=== PATIENT | female | born 1935 | race Caucasian/White ===

== ENCOUNTER 2019-07-09 15:54 | Inpatient (IN) | payer MEDICARE ==
[~2019-07-09] VITALS: Ht 149.9 cm; Wt 59.9 kg
--- NOTE | 2019-07-09 15:54 | NUR ---
PT ADRIÁNA ALS AND PLACED IN BED 10.
--- NOTE | 2019-07-09 16:06 | NUR ---
CALLED CT FOR CODE BRAIN PER DR. ALSTON AT THIS TIME.
[2019-07-09] MEDS ORDERED: NACL 0.9% 1,000 ML IV ONE ×3 (16:10→21:55)
[2019-07-09] MEDS ORDERED: ONDANSETRON 4 MG/2 ML VIAL IVP ONE (16:10)
[2019-07-09 16:20] VITALS: BP 127/43
[2019-07-09 16:53] LABS: BASOPHILS % (AUTO) 0.2 % (0.0-2.0); EOSINOPHILS % (AUTO) 0.3 % (0.0-4.0); HEMATOCRIT 34.3 % (36-48); HEMOGLOBIN 11.4 g/dL (12.0-16.0); LYMPHOCYTES # (AUTO) 0.9 K/uL (2.5-16.5); LYMPHOCYTES % (AUTO) 10.1 % (20.5-51.1); MEAN CORPUSCULAR HEMOGLOBIN 41 pg (27-31); MEAN CORPUSCULAR HGB CONC 33 g/dL (33-37); MEAN CORPUSCULAR VOLUME 122.6 fL (80-94); MONOCYTES # (AUTO) 0.1 K/uL (0.8-1.0); MONOCYTES % (AUTO) 0.6 % (1.7-9.3); NEUTROPHILS # (AUTO) 8.1 K/uL (1.8-7.7); NEUTROPHILS % (AUTO) 88.8 % (42.2-75.2); PLATELET COUNT (AUTO) 362 K/uL (140-450); RED CELL DISTRIBUTION WIDTH 14.8 % (11.6-13.7); WHITE BLOOD COUNT (AUTO) 9.1 K/uL (4.8-10.8)
[2019-07-09 17:05] LABS: ANION GAP 18.7 (8-16); CARBON DIOXIDE 20.3 mmol/L (21-32); CHLORIDE 103 mmol/L (98-107); CREATININE 1.3 mg/dL (0.6-1.3); GLUCOSE 188 mg/dL (74-106); SODIUM SERUM 137 mmol/L (136-145); UREA NITROGEN, BLOOD 35 mg/dL (7-18)
--- NOTE | 2019-07-09 17:07 | NUR ---
PATIENT BROUGHT TO ED BY AMBULANCE DUE TO ALOC SINCE 6PM LAST NIGHT. +VOMITING X 1, +DIAPHORESIS, +CP, +ABDOMINAL PAIN. SON STATES THAT PT IS USUALLY ALERT AND ORIENTED. PT IS AAOX4. GCS 14. ABLE TO SPEAK IN FULL SENTENCE. NO SLURRING. PT ABLE TO FOLLOW COMMANDS. PERRLA 3MM ON BOTH PUPILS, SLUGGISH. NIHS SCORE OF 0. NO NEURO DEFICIT. AAOX4 WITH EVEN AND STEADY GAIT; BREATHING UNLABORED, LUNGS CLEAR BL; PT ON RA AT 90%, SWITCHED TO 02 VIA NC AT 2L. HR EVEN AND REGULAR; ABDOMEN FIRM, TENDER WITH ACTIVE BOWEL SOUNDS ON ALL QUADRANTS. SKIN DRY AND PALE WITH DISCOLORATION ON EXTREMITIES. WITH BRUISES ON PT'S RIGHT BACK. PULSES +2 ON ALL EXTREMITIES. NSR. VSS. PT DENIES ANY FEVER, SOB, OR COUGH AT THIS TIME; PATIENT STATES PAIN OF 0/10 AT THIS TIME; VSS; PATIENT POSITIONED FOR COMFORT; HOB ELEVATED; BEDRAILS UP X2; BED DOWN. DR ERICKSON AT BEDSIDE EVALUATING PT. CODE BRAIN CALLED AT 1606. CALLED CT.
[2019-07-09 17:11] LABS: ALBUMIN 3.6 g/dL (3.4-5.0); ASPARTATE AMINOTRANSFERASE 29 U/L (15-37); TOTAL BILIRUBIN 0.7 mg/dL (0.0-1.0)
[2019-07-09 17:13] LABS: PROTHROMBIN TIME 10.6 secs (10.8-13.4)
[2019-07-09] MEDS ORDERED: ISOS20TA13 PO (17:33)
[2019-07-09] MEDS ORDERED: ORE25 PO (17:33)
[2019-07-09] MEDS ORDERED: SIMV20TA1 PO (17:33)
[2019-07-09] MEDS ORDERED: DULO30EC PO (17:33)
[2019-07-09] MEDS ORDERED: CLON0.1T42 PO (17:33)
[2019-07-09] MEDS ORDERED: AMLO10TA PO (17:33)
[2019-07-09] MEDS ORDERED: HYDR500C PO (17:33)
[2019-07-09] MEDS ORDERED: LISI-420 PO (17:33)
[2019-07-09] MEDS ORDERED: CARV6.25 PO (17:33)
[2019-07-09] MEDS ORDERED: METF850T PO (17:33)
[2019-07-09] MEDS ORDERED: ASPI-1718 PO (17:33)
--- NOTE | 2019-07-09 17:45 | NUR ---
PT'S DAUGHTER STATED THAT PT HIT HER RIGHT TORSO ON THE KITCHEN COUNTER YESTERDAY.+BRUISING +PAIN
--- NOTE | 2019-07-09 18:35 | NUR ---
PT HAD LARGE BOWEL MOVEMENT OF LOOSE, WATERY STOOL. CLEANED BED AND CHANGED LINEN. CLEANED PT AND CHANGED HOSP GOWN. DR ALSTON MADE AWARE.
[2019-07-09] MEDS ORDERED: LEVOFLOXACIN 500 MG/D5W PREMIX 100 ML IV ONE (18:50)
[2019-07-09 19:13] LABS: APPEARANCE,URINE HAZY (CLEAR); BILIRUBIN,URINE NEGATIVE (NEGATIVE); BLOOD, URINE NEGATIVE (NEGATIVE); COLOR,URINE YELLOW (YELLOW); LEUKOCYTE ESTERASE ,URINE 1+ (NEGATIVE); NITRITE, URINE POSITIVE (NEGATIVE); UGLUCOSE NEGATIVE (NEGATIVE)
--- NOTE | 2019-07-09 19:24 | NUR ---
REPORT GIVEN TO HOWARD AUGUSTE
[2019-07-09 19:27] LABS: RBC,URINE 0 /HPF (0-5)
--- NOTE | 2019-07-09 19:35 | NUR ---
PT HAD X1 LARGE LIQUID STOOL, PERICARE DONE, LINEN CHANGED. VSS. WILL CONTINUE TO OBSEVE
--- NOTE | 2019-07-09 19:53 | NUR ---
Dr. Rooney examining patient.
--- NOTE | 2019-07-09 20:31 | NUR ---
PT TAKEN TO CT
--- NOTE | 2019-07-09 20:54 | NUR ---
PT RETURN FROM CT
[2019-07-09] MEDS ORDERED: ACETAMINOPHEN 325 MG TAB PO ONE (21:15)
[2019-07-09] MEDS ORDERED: fentaNYL 0.05 MG/ML VIAL IVP ONE (21:15)
--- NOTE | 2019-07-09 21:45 | NUR ---
# 16 FR Augustine catheter with 10 ml utilizing sterile technique. Immediate return of 600 ml CLOUDY YELLOW urine noted. Bedside drainage bag placed below level of bladder. Urine sample collected and sent to lab. Pt tolerated procedure WELL.
[2019-07-09] MEDS ORDERED: metroNIDAZOLE 500 MG/NS PREMIX 100 ML IV ONE (21:55)
[2019-07-09] MEDS ORDERED: HYDROcodone/APAP 7.5/325 MG 1 TAB PO PRN (22:40)
[2019-07-09] MEDS ORDERED: MORPHINE SULFATE 2 MG/ML SYR IVP PRN (22:40)
[2019-07-09] MEDS ORDERED: ONDANSETRON 4 MG/2 ML VIAL IM/IVP PRN (22:40)
--- NOTE | 2019-07-09 23:04 | NUR ---
Dr. Saini at bedside speaking with patient family.
--- NOTE | 2019-07-09 23:15 | NUR ---
flexy seal inserted, pt tolerated procedure well.
[2019-07-09 23:18] LABS: FREE T4 (FREE THYROXINE) 1.54 ng/dL (0.76-1.46); MAGNESIUM 2.5 mg/dL (1.8-2.4); PHOSPHORUS 5.1 mg/dL (2.5-4.9); THYROID STIMULATING HORMONE 0.44 uIU/mL (0.34-3.74)
--- NOTE | 2019-07-09 23:45 | NUR ---
RECEIVED PT FROM ER [facility]IA [facility].TRANSFERRED TO ICU BED 1.PT ALERT AND ORIENTED TO NAME,PLACE AND DATE.SR ON MONITOR.ON 02NC AT 2LPM.NO SOB NOTED.W/PERIPHERAL IV TO RT F/A G 18 AND LT F/A G22.INFUSING ORDERED IVF.PT DENIES N/V AT THIS TIME.W/ESCUDERO CATHETER TO BSD DRAINING ADEQUATE AMT OF YELLOW URINE.W/RECTAL TUBE ALSO IN PLACE W/SCANTY LIQUID BROWN STOOL.SPECIMEN TO R/O C.DIFF STILL PENDING.NO SPECIMEN AVAILABLE AT THIS TIME.W/LARGE BRUISE TO RT F/A.PHOTOS TAKEN OTHERWISE SKIN IS INTACT.DENIES PAIN AT THIS TIME.PT ABLE TO COOPER.
[2019-07-10] VITALS (12 sets, daily range): BP systolic 115–168; BP diastolic 43–67
[2019-07-10] MEDS: NACL 0.9% 1,000 ML IV SCH ×3 (00:12→15:43)
--- NOTE | 2019-07-10 00:15 | NUR ---
PTS FAMILY AT BEDSIDE.ADMISSION HISTORY OBTAINED.
--- NOTE | 2019-07-10 00:51 | NUR ---
Patient will be admitted to care of . Admited to icu 1. Belongings list completed. Report to Giana LAWRENCE.
--- NOTE | 2019-07-10 02:15 | NUR ---
PTS FAMILY AT BEDSIDE AND SPOKE WITH DR SHELL.
--- NOTE | 2019-07-10 03:17 | NUR ---
PTS EYES CLOSED.EASILY AROUSABLE.DENIES PAIN WHEN ASKED. 96% 02SATURATION ON 02NC AT 2LPM.REPOSITIONED.SCD ALREADY IN PLACE.STILL SCANTY AMT OF LIQUID STOOL IN THE TUBE(RECTAL TUBE)
--- NOTE | 2019-07-10 03:54 | NUR ---
PTS BLOOD PRESSURE 162/61; RECHECKED 169/67. PT DENIES PAIN.RERFUSED PAIN MEDICATION. PHONE CALL TO DR SHELL AND NOTIFIED REGARDING HIGH BP; NO NEW ORDERS
--- NOTE | 2019-07-10 04:20 | NUR ---
PHONE CALL TO DR SHELL; MADE AWARE THAT PT HAS 2/10 PAIN TO RT RIBS; PER PTS DAUGHTER JENN, PT IS ALLERGIC TO MORPHINE AND CODEINE, NOTED SEVERE SHORTNESS OF BREATH WHEN PT WAS ACCIDENTALLY GIVEN MORPHINE ON PREVIOUS ADMISSION; ALLERGY UPDATED ON PTS FILE.ALSO NOTIFIED DR SHELL PTS BP AT THIS TIME IS 170/66.AWAITING ORDERS
--- NOTE | 2019-07-10 05:04 | NUR ---
pts daughter at bedside;informed that nurse will give toradol for pain; pts daughter said its ok to give the medication
[2019-07-10] MEDS: KETOROLAC 15 MG/ML VIAL IVP PRN ×2 (05:11→12:35)
[2019-07-10] MEDS: metroNIDAZOLE 500 MG/NS PREMIX 100 ML IV SCH ×3 (05:11→20:24)
[2019-07-10 06:20] LABS: HEMATOCRIT 34.2 % (36-48); HEMOGLOBIN 11.3 g/dL (12.0-16.0); LYMPHOCYTES # (AUTO) 1.3 K/uL (2.5-16.5); LYMPHOCYTES % (AUTO) 8.6 % (20.5-51.1); MEAN CORPUSCULAR HEMOGLOBIN 40 pg (27-31); MEAN CORPUSCULAR HGB CONC 33 g/dL (33-37); MONOCYTES # (AUTO) 0.6 K/uL (0.8-1.0); MONOCYTES % (AUTO) 3.8 % (1.7-9.3); NEUTROPHILS % (AUTO) 87.6 % (42.2-75.2); PLATELET COUNT (AUTO) 327 K/uL (140-450); RED CELL DISTRIBUTION WIDTH 15.2 % (11.6-13.7); WHITE BLOOD COUNT (AUTO) 14.8 K/uL (4.8-10.8)
--- NOTE | 2019-07-10 06:20 | NUR ---
PTS EYES CLOSED; NO SOB NOTED ON 02NC AT 2LPM.PERIPHERAL IV INTACT INFUSING ORDERED IVF.BP 136/58 AT THIS TIME.SR ON MONITOR.DENIES PAIN WHEN ASKED
[2019-07-10 06:54] LABS: ANION GAP 17.4 (8-16); CARBON DIOXIDE 21.8 mmol/L (21-32); CHLORIDE 105 mmol/L (98-107); CREATININE 1.1 mg/dL (0.6-1.3); GLUCOSE 205 mg/dL (74-106); POTASSIUM 4.2 mmol/L (3.5-5.1); SODIUM SERUM 140 mmol/L (136-145); UREA NITROGEN, BLOOD 27 mg/dL (7-18)
[2019-07-10] MEDS ORDERED: ALBUTEROL SULFATE/IPRATROPIU 3 ML SOL IH SCH ×2 (07:00)
--- NOTE | 2019-07-10 07:30 | NUR ---
RECEIVED REPORT FROM LUCRECIA Schmid RN. PT IS AWAKE AND ALERT. OCCITAN SPEAKING. ORIENTED. COOPER. SL GEN WEAKNESS NOTED. DENIES ANY PAINS AT THIS TIME. 02 AT 2 L/MIN/NC, 02 SAT 94. NO SOB NOTED. LUNGS SOUND DIMINISHED. ENCOURAGED TO DO DEEP BREATHING AND COUGHING EX. IV INFUSING AT RT FA 0.9NS AT 80 ML/HR. IV SITE CLEAR. ESCUDERO CATH INTACT AND PATENT DRAINING WELL TO CLEAR STRAW COLORED URINE. RECTAL TUBE IN PLACE. NO BM NOTED AT THIS TIME,.
[2019-07-10] MEDS ORDERED: metFORMIN 850 MG TAB PO SCH (08:00)
--- NOTE | 2019-07-10 08:00 | NUR ---
BREAKFAST SERVED. ABLE TO FEED SELF WITH MINIMAL ASSISTANCE. ATE 80%. NO N/V. NO DIFFICULTY IN SWALLOWING.
[2019-07-10 08:06] LABS: MAGNESIUM 1.4 mg/dL (1.8-2.4); PHOSPHORUS 4.4 mg/dL (2.5-4.9)
[2019-07-10] MEDS: HYDROXYUREA 500 MG CAP PO SCH (08:24)
[2019-07-10] MEDS: LISINOPRIL 20 MG TAB PO SCH (08:25)
[2019-07-10] MEDS: cloNIDine 0.1 MG TAB PO SCH ×2 (08:26→20:28)
[2019-07-10] MEDS: ASPIRIN 81 MG TAB.CHEW PO SCH (08:27)
--- NOTE | 2019-07-10 08:30 | NUR ---
FAMILY HERE. INSTRUCTED ON CONTACT ISOLATION. UPDATED ON PT'S CONDITION.
[2019-07-10] MEDS: DULoxetine 30 MG CAPDR PO SCH (08:44)
[2019-07-10] MEDS ORDERED: ISOSORBIDE DINITRATE 20 MG TAB PO SCH (09:00)
[2019-07-10] MEDS ORDERED: LACTOBACILLUS RHAMNOSUS GG 1 EACH CAP PO SCH (09:00)
[2019-07-10] MEDS ORDERED: LEVOFLOXACIN 250 MG/D5 PREMIX 50 ML IV ONE (09:00)
[2019-07-10] MEDS ORDERED: amLODIPine 5 MG TAB PO SCH (09:00)
--- NOTE | 2019-07-10 09:04 | NUR ---
PATIENT HAS BEEN SCREENED AND CATEGORIZED HIGH NUTRITION RISK. PATIENT WILL BE SEEN WITHIN 1-2 DAYS OF ADMISSION. 07/10/19-07/11/[address]
[2019-07-10] MEDS: HYDROCHLOROTHIAZIDE 25 MG TAB PO SCH (09:45)
--- NOTE | 2019-07-10 10:00 | NUR ---
INCENTIVE SPIROMETER DONE. UNABLE TO DO. DOES NOT TAKE DEEP BREATHS.
[2019-07-10] MEDS ORDERED: LEVO0.083 PO (10:01)
[2019-07-10] MEDS: CARVEDILOL 6.25 MG TAB PO SCH ×2 (10:11→20:27)
--- NOTE | 2019-07-10 12:15 | NUR ---
STOOL SPECIMEN FOR ORDERED TESTS TAKEN TO THE LAB.
--- NOTE | 2019-07-10 12:45 | NUR ---
DR. KHAN HERE TO SEE AND EXAMINE PT.
--- NOTE | 2019-07-10 14:15 | NUR ---
ASSISTS IN REPOSITIONING SELF IN BED. SL DISCOMFORTS NOTED ON RT SIDE WITH MOVEMENT. REFUSED PAIN MEDS AT THIS TIME.
--- NOTE | 2019-07-10 15:01 | NUR ---
Sheeter Machine Operator Note: I called patient's daughter Yecenia Garciaas , no answer, left message.
--- NOTE | 2019-07-10 15:04 | NUR ---
07/10/19 RD INITIAL ASSESSMENT COMPLETED PLEASE REFER TO NUTRITION ASSESSMENT UNDER CARE ACTIVITY FOR ESTIMATED NUTRITIONAL NEEDS. 1. RECOMMEND A CCHO, CARDIAC DIET 2. RECOMMEND GLUCERNA BID 3. NUTRITION EDUCATION DM-II WAS GIVEN TO PT 4. RD TO FOLLOW-UP HIGH DAYS, 2-[address]
--- NOTE | 2019-07-10 16:00 | NUR ---
RECTAL TUBE DRAINING THICK BROWN LIQUID STOOLS.
[2019-07-10] MEDS ORDERED: MAG SULF 2000 MG/WATER PREMIX 100 ML IV SCH (18:00)
--- NOTE | 2019-07-10 18:00 | NUR ---
AWAKE AND ALERT. STATES SHE FEELS A LOT BETTER. DENIES ANY DISCOMFORTS AT THIS TIME. FAMILY AT BEDSIDE. UPDATED ON PT'S CONDITION. QUESTIONS ANSWERED.
[2019-07-10] MEDS ORDERED: LEVOFLOXACIN 250 MG/D5 PREMIX 50 ML IV SCH (19:00)
--- NOTE | 2019-07-10 19:00 | NUR ---
RECEIVED REPORT FROM ROXANNE LAWRENCE. INITIAL ASSESSMENT COMPLETED.PT AWAKE ALERT AND ORIENTED.BRAZILIAN SPEAKING.SR ON MONITOR.ON 02NC AT 2LPM.DIMINISHED LUNG SOUND NOTED.PERIPHERAL IV TO RT F/A G18 INTACT INFUSING ORDERED IVF.PT ON CARDIAC DIET.DENIES N/V.TOLERATING ORAL INTAKE.W/ESCUDERO CATHETER TO BSD DRAINING CLEAR YELLOW URINE, ADEQUATE AMT.W/RECTAL TUBE ALSO NOTED.SMALL BROWN PASTY STOOL NOTED.W/BRUISING TO RT F/A STILL NOTED AND BRUISING TO RT LATERAL BACK.DENIES PAIN WHEN ASKED.REPOSITIONED.
--- NOTE | 2019-07-10 20:00 | NUR ---
FAMILY AT BEDSIDE.UPDATED ON PTS PRESENT CONDITION. PT AWAKE . INSTRUCTED TO USE INCENTIVE SPIROMETER.PT ABLE TO DO A LITTLE BIT FOR NOW.WILL ENCOURAGE TO CONTINUE IS EXERCISE
[2019-07-10] MEDS: SIMVASTATIN 20 MG TAB PO SCH (20:27)
[2019-07-10] MEDS: ISOSORBIDE DINITRATE 10 MG TAB PO SCH (20:28)
--- NOTE | 2019-07-10 22:26 | NUR ---
SEEN AND EXAMINED BY DR DESAI; UPDATED ON PTS PRESENT CONDITION.QUESTIONS ANSWERED.NO NEW ORDERS. MADE AWARE PT ON ISOLATION TO R/O C.DIFF. NO NEW ORDERS
[2019-07-11] VITALS (11 sets, daily range): BP systolic 98–127; BP diastolic 42–52
--- NOTE | 2019-07-11 00:28 | NUR ---
PTS EYES CLOSED; EASILY AROUSABLE.INTERMITTENT SHALLOW BREATHING AND TACHYPNEA NOTED; PT STILL ON O2NC AT 2LPM.DENIES PAIN,.REPOSITIONED
[2019-07-11] MEDS: KETOROLAC 15 MG/ML VIAL IVP PRN ×2 (01:28→08:46)
--- NOTE | 2019-07-11 01:42 | NUR ---
PT AWAKE.FAMILY AT BEDSIDE.C/O PAIN TO RT SIDE OF ABDOMINAL AREA; TORADOL GIVEN ORDERED
--- NOTE | 2019-07-11 03:24 | NUR ---
contact isolation maintained to r/o c diff. pts eyes closed.no s/sx of pain noted.no sob noted.
[2019-07-11] MEDS: metroNIDAZOLE 500 MG/NS PREMIX 100 ML IV SCH ×3 (04:51→21:07)
[2019-07-11 04:58] LABS: BASOPHILS % (AUTO) 0.2 % (0.0-2.0); EOSINOPHILS % (AUTO) 0.3 % (0.0-4.0); HEMATOCRIT 27.4 % (36-48); HEMOGLOBIN 9.1 g/dL (12.0-16.0); LYMPHOCYTES # (AUTO) 1.4 K/uL (2.5-16.5); LYMPHOCYTES % (AUTO) 15.1 % (20.5-51.1); MEAN CORPUSCULAR HEMOGLOBIN 41 pg (27-31); MEAN CORPUSCULAR HGB CONC 33 g/dL (33-37); MEAN CORPUSCULAR VOLUME 121.6 fL (80-94); MONOCYTES # (AUTO) 0.4 K/uL (0.8-1.0); MONOCYTES % (AUTO) 3.9 % (1.7-9.3); NEUTROPHILS # (AUTO) 7.7 K/uL (1.8-7.7); NEUTROPHILS % (AUTO) 80.5 % (42.2-75.2); PLATELET COUNT (AUTO) 237 K/uL (140-450); RED BLOOD CELL COUNT(AUTO) 2.25 MIL/uL (4.20-5.40); RED CELL DISTRIBUTION WIDTH 15.1 % (11.6-13.7); WHITE BLOOD COUNT (AUTO) 9.5 K/uL (4.8-10.8)
[2019-07-11] MEDS: NACL 0.9% 1,000 ML IV SCH (05:13)
[2019-07-11] MEDS: LEVOTHYROXINE 0.088 MG TAB PO SCH (05:13)
--- NOTE | 2019-07-11 05:20 | NUR ---
morning care done.02sat noted at 87% on 02nc at 2lpm.called rt; breathing treatment given. family at bedside and updated on pts present condition
[2019-07-11] MEDS: ALBUTEROL SULFATE/IPRATROPIU 3 ML SOL IH PRN (05:22)
--- NOTE | 2019-07-11 05:53 | NUR ---
02sat during breathing treatment at 95-97%; after treatment 02sat went down to 87%; change to oxymizer at 6lpm; 02sat at this time 92%
--- NOTE | 2019-07-11 06:00 | NUR ---
PATIENT SWITCHED TO 6L OXYMIZER BECAUSE SPO2 WAS DECREASING EVEN AFTER PRN TREATMENT GIVEN. PATIENT SP02 IS NOW 96 HEART RATE 88 PATIENT STABLE NO RESP DISTRESS NOTICED. O2 WILL BE TITRATED BASED UPON THE STATUS OF PATIENT. RN NOTIFIED AND AWARE.
--- NOTE | 2019-07-11 07:30 | NUR ---
RECEIVED REPORT FROM PM NURSE. PT NAMIBIAN SPEAKING, AWAKE,ALERT. ON OXIMIZER 6L/MIN. O2 SATS 95%. NO S/S OF RESPIRATORY DISTRESS NOTED.LUNG SOUND CLEAR. BEDSIDE MONITOR SHOWS SR. PT HAS IV TO RIGHT FA #18 RUNNING 0.9 NS AT 100 CC/HR. SITE INTACT AND PATENT. PT ALSO HAS IV TO LEFT FA #22, SALINE LOCK. PT HAS RECTAL TUBE IN PLACE AND F/C IN PLACE. SKIN INTACT. SCDS IN PLACE. HOB ELEVATED 30 DEGREES WITH LOW BED POSITION, WILL CONTINUE TO MONITOR.
--- NOTE | 2019-07-11 08:00 | NUR ---
ORAL CARE GIVEN. PT EAT ABOUT 50% OF THE BREAKFAST TRAY.
[2019-07-11 08:04] LABS: ANION GAP 12.5 (8-16); CARBON DIOXIDE 21.6 mmol/L (21-32); CHLORIDE 102 mmol/L (98-107); GLUCOSE 191 mg/dL (74-106); POTASSIUM 4.1 mmol/L (3.5-5.1); SODIUM SERUM 132 mmol/L (136-145)
[2019-07-11 08:06] LABS: CREATININE 1.2 mg/dL (0.6-1.3); UREA NITROGEN, BLOOD 26 mg/dL (7-18)
[2019-07-11 08:08] LABS: MAGNESIUM 2.6 mg/dL (1.8-2.4)
[2019-07-11 08:09] LABS: PHOSPHORUS 2.4 mg/dL (2.5-4.9)
[2019-07-11] MEDS: LACTOBACILLUS RHAMNOSUS GG 1 EACH CAP PO SCH (08:42)
[2019-07-11] MEDS: CARVEDILOL 6.25 MG TAB PO SCH ×2 (08:43→21:09)
[2019-07-11] MEDS: ASPIRIN 81 MG TAB.CHEW PO SCH (08:45)
[2019-07-11] MEDS: ISOSORBIDE DINITRATE 10 MG TAB PO SCH ×2 (08:46→21:08)
[2019-07-11] MEDS: LISINOPRIL 20 MG TAB PO SCH (08:46)
[2019-07-11] MEDS: HYDROCHLOROTHIAZIDE 25 MG TAB PO SCH (08:47)
[2019-07-11] MEDS: amLODIPine 5 MG TAB PO SCH (08:48)
[2019-07-11] MEDS: cloNIDine 0.1 MG TAB PO SCH ×3 (08:48→21:09)
[2019-07-11] MEDS: DULoxetine 30 MG CAPDR PO SCH (08:51)
[2019-07-11] MEDS: HYDROXYUREA 500 MG CAP PO SCH (08:52)
[2019-07-11] MEDS: LEVOFLOXACIN 250 MG/D5 PREMIX 50 ML IV SCH (08:53)
--- NOTE | 2019-07-11 08:57 | NUR ---
HOLD CATAPRES DUE TO BEDSIDE MONITOR SHOWS BP 104/50, WHEN I RECYCLED BP SHOWS 100/42.
--- NOTE | 2019-07-11 09:00 | NUR ---
F/C CARE GIVEN. BED BATH GIVEN. DAUGHTER AT BEDSIDE.
--- NOTE | 2019-07-11 10:57 | NUR ---
PT SLEEPING AT THIS TIME. NO S/S OF RESPIRATORY DISTRESS NOTED. DAUGHTER AT BEDSIDE.
--- NOTE | 2019-07-11 12:00 | NUR ---
made dr. bryson aware we are unable to find rib belt so far. samantha Judge notified regarding rib belt.
[2019-07-11] MEDS: ACETAMINOPHEN 325 MG TAB PO SCH ×2 (12:06→17:03)
--- NOTE | 2019-07-11 12:36 | NUR ---
DR. HAWKINS IN TO CHECK PT. UPDATED PT'S CONDITION. DR. HAWKINS MADE AWARE PT IS BLOATED. AFTER DR. HAWKINS CHECKED PT. DR. HAWKINS STATED REMOVE RECTAL TUBE, PT MAY CONSTIPATED. NOTIFIED DR. RYAN.
[2019-07-11] MEDS: SENNA 8.6 MG TAB PO SCH ×2 (13:00→16:26)
--- NOTE | 2019-07-11 13:07 | NUR ---
RECTAL TUBE REMOVED. PT HAD MODERATE AMOUNT OF SOFT BM, CLEANED PT. GOWN CHANGED, PT STATED SHE FELT MUCH BETTER . DAUGHTER AND SON AT BEDSIDE.
[2019-07-11] MEDS ORDERED: MAGNESIUM CITRATE 300 ML BTL PO SCH (13:30)
--- NOTE | 2019-07-11 13:45 | NUR ---
PT AND PT'S DAUGHTER REFUSED CITROMA AND SENOKOT. PT'S DAUGHTER STATED " WE DO NOT NEED STOOL SOFTENER". UNTIL NOW, PT HAD TWO TIMES BM. THE SECOND TIME BM WAS LOOSE.
--- NOTE | 2019-07-11 13:52 | NUR ---
Machine Silk Screen Printer Note: I called and spoke with patient's daughter Yecenia Fenton , I asked her if she had any questions or needed any social service director/social work assistance. She stated not at this time and told me she will contact me if any needs arise.
[2019-07-11] MEDS ORDERED: KETOROLAC 15 MG/ML VIAL IVP SCH (15:00)
--- NOTE | 2019-07-11 16:23 | NUR ---
pt resting in bed, talking with family. no s/s of respiratory distress noted.
--- NOTE | 2019-07-11 16:30 | NUR ---
pt's son at bedside. pt refused Senokot due at 1700. pt stated she does not need it.
[2019-07-11] MEDS ORDERED: metFORMIN 850 MG TAB PO SCH (17:00)
[2019-07-11] MEDS: metFORMIN 500 MG TAB PO SCH (17:03)
[2019-07-11] MEDS: METOCLOPRAMIDE 10 MG TAB PO SCH (17:04)
--- NOTE | 2019-07-11 18:45 | NUR ---
NOTIFIED RADHA LAWRENCE FOR RIB BELT.
--- NOTE | 2019-07-11 18:45 | NUR ---
transferred pt to tele 113, report given to Jo Ann LAWRENCE. pt awake, alert. no sob. able to make needs known. all personal belongings with pt. pt son with pt.
--- NOTE | 2019-07-11 18:50 | NUR ---
REPORT RECIEVED FROM MORIAH RN, PT PLACED ON BEDPAN, LOOSE BM, PT ORIENTED TO ROOM AND FLOOR, SON AT BEDSIDE, IVF RESUMED, PLAN OF CARE REVIEWED, BP 112/72, HR 86, RR 18, O2 SAT 93% WITH 6L OXYMIZER, TEMP 98.2, CALL RICKS WITHIN REACH, SIDE RAILS UP, BED LOCKED IN LOW POSITION ,
--- NOTE | 2019-07-11 19:28 | NUR ---
REPORT GIVEN TO BED MAKER NURSE, PT IN STABLE CONDITION.
--- NOTE | 2019-07-11 19:30 | NUR ---
RECEIVED FROM AM RN IN BED AWAKE AND ALERT. NO SOB. SLEEPING. FAMILY MEMBER PRESENT AT THIS TIME. CALL LIGHT AT BEDSIDE. BED ALARM ON . ISOLATION PRECAUTION RT R/O C- DIFF. DX. OF SEPSIS, COLITIS, UTI, RIB FRACTURE AND PNA. TELEMETRY MONITORING. WILL CONTINUE WITH CARE FOR THE NIGHT. NEEDS WILL BE ANTICIPATED AND WILL BE MET. ON 6 LPM/OXYMIZER .
[2019-07-11] MEDS: SIMVASTATIN 20 MG TAB PO SCH (21:08)
--- NOTE | 2019-07-11 21:26 | NUR ---
FAMILY MEMBER INHERE TO WATCH OVER PT. STATED THEY WILL WATCH OVER HER RT SHE IS A FALL RISK PT. HX. FALL AT HOME. CHARGE NURSE INFORMED AND AWARE. RE-ORIENTED TO CALL LIGHT USE FOR ANY HELP THEY MAY NEED AND ISOLATION PRECAUTION TO R/O C-DIFF.
--- NOTE | 2019-07-11 23:28 | NUR ---
CHECKED ON PT. NO COMPLAINT DONE. DAUGHTER AT BEDSIDE. ENCOURAGED TO CALL FOR ANY HELP SHE MIGHT NEED. CALL LIGHT WITH IN REACH. PT. NO SOB. 0N 02 AT 6LPM WITH OXIMIZER . 03 SAT 97 %. TELEMETRY MONITORING. PT. ABLE TO TURN SELF. PILLOW SUPPORT TO PRESSURE AREAS.
[2019-07-12] MEDS: ACETAMINOPHEN 325 MG TAB PO SCH ×4 (00:08→17:34)
[2019-07-12 00:22] VITALS: BP 108/46
[2019-07-12] MEDS: NACL 0.9% 1,000 ML IV SCH (02:10)
--- NOTE | 2019-07-12 02:11 | NUR ---
PT. SLEEPING WELL. FAMILY MEMBER IN HERE WATCHING OVER HER. NO COMPLAINTS DONE.
[2019-07-12 04:55] VITALS: BP 110/44
--- NOTE | 2019-07-12 04:57 | NUR ---
PT. SLEEPING. WOKE UP EASILY WHEN TOUCHED AND VITAL SIGNS CHECKED. DAUGHTER AT BEDSIDE. NO COMPLAINTS DONE. AFEBRILE. IVF SITE INTACT AND NO S/S OF INFILTRATION. CALL LIGHT WITH IN REACH. C-DIFF STOOL RESULT NEGATIVE . INFORMED FAMILY MEMBER . TAKEN OFF ISOLATION PRECAUTION.
[2019-07-12] MEDS: METOCLOPRAMIDE 10 MG TAB PO SCH ×3 (06:15→17:34)
[2019-07-12] MEDS: metroNIDAZOLE 500 MG/NS PREMIX 100 ML IV SCH ×3 (06:15→20:22)
[2019-07-12] MEDS: LEVOTHYROXINE 0.088 MG TAB PO SCH (06:19)
[2019-07-12 06:25] LABS: BASOPHILS % (AUTO) 0.2 % (0.0-2.0); EOSINOPHILS # (AUTO) 0.2 K/uL (0-0.4); EOSINOPHILS % (AUTO) 3.2 % (0.0-4.0); HEMATOCRIT 24.7 % (36-48); HEMOGLOBIN 8.2 g/dL (12.0-16.0); LYMPHOCYTES # (AUTO) 1.5 K/uL (2.5-16.5); MEAN CORPUSCULAR HEMOGLOBIN 41 pg (27-31); MEAN CORPUSCULAR HGB CONC 33 g/dL (33-37); MEAN CORPUSCULAR VOLUME 122.3 fL (80-94); MONOCYTES # (AUTO) 0.3 K/uL (0.8-1.0); MONOCYTES % (AUTO) 4.8 % (1.7-9.3); NEUTROPHILS % (AUTO) 70.8 % (42.2-75.2); PLATELET COUNT (AUTO) 218 K/uL (140-450); RED BLOOD CELL COUNT(AUTO) 2.02 MIL/uL (4.20-5.40); RED CELL DISTRIBUTION WIDTH 14.9 % (11.6-13.7); WHITE BLOOD COUNT (AUTO) 7.1 K/uL (4.8-10.8)
[2019-07-12 06:47] LABS: ANION GAP 11.9 (8-16); CARBON DIOXIDE 20.5 mmol/L (21-32); CHLORIDE 104 mmol/L (98-107); GLUCOSE 141 mg/dL (74-106); POTASSIUM 4.4 mmol/L (3.5-5.1); SODIUM SERUM 132 mmol/L (136-145); UREA NITROGEN, BLOOD 24 mg/dL (7-18)
[2019-07-12 06:51] LABS: PHOSPHORUS 2.9 mg/dL (2.5-4.9)
--- NOTE | 2019-07-12 07:15 | NUR ---
RECEIVED REPORT FROM SALES AGENT FINANCIAL REPORT SERVICE NURSE. PT AROUSABLE TO NAME, ORIENTED X4, NO C/O PAIN AT THIS TIME. PT ON NUT STEAMER. IV ON RT FA 18 GA RUNNING IVF PER ORDER. RESPIRATIONS EVEN AND UNLABORED ON O2 5L VIA N/C. ABD SOFT, ACTIVE BS. F/C IN PLACE, DRAINING CLEAR AND YELLOW URINE. SKIN IS INTACT, WARM TO TOUCH. PT ON FALL RISK PRECAUTIONS, SAFETY MEASURES IN PLACE, CALL LIGHT WITHIN REACH. REVIEWED POC WITH PT, PT VERBALIZED UNDERSTANDING.
--- NOTE | 2019-07-12 07:22 | NUR ---
ENDORSED TO AM RN FOR CONTINUITY OF CARE. PT. CONFUSED WHEN AWAKE. TELEMETRY MONITORING. Addendum: 07/12/19 at 0726 by Trang Song RN PT. A/O X 4. ABLE TO VERBALIZE WELL IN [place] NEEDS.
--- NOTE | 2019-07-12 07:31 | NUR ---
CHANGE PT FROM 6L OXYMIZER TO 3L N\C SPO2 97
--- NOTE | 2019-07-12 07:46 | NUR ---
PAGED DR. BRAR, TO REPORT CRITICAL LAB VALUE OF CREATININE 5.5. AWAITING CALL BACK.
[2019-07-12 08:00] VITALS: BP 124/49
--- NOTE | 2019-07-12 08:05 | NUR ---
PAGED DR. BRAR FOR THE SECOND TIME TO REPORT CRITICAL LAB. AWAITING CALL BACK.
[2019-07-12] MEDS: metFORMIN 500 MG TAB PO SCH ×2 (08:18→17:34)
[2019-07-12] MEDS: ASPIRIN 81 MG TAB.CHEW PO SCH (08:18)
[2019-07-12] MEDS: LISINOPRIL 20 MG TAB PO SCH (08:21)
[2019-07-12] MEDS: HYDROCHLOROTHIAZIDE 25 MG TAB PO SCH (08:21)
[2019-07-12] MEDS: cloNIDine 0.1 MG TAB PO SCH ×2 (08:22→20:17)
[2019-07-12] MEDS: amLODIPine 5 MG TAB PO SCH (08:22)
[2019-07-12] MEDS: LACTOBACILLUS RHAMNOSUS GG 1 EACH CAP PO SCH (08:22)
[2019-07-12] MEDS: ISOSORBIDE DINITRATE 10 MG TAB PO SCH ×2 (08:23→20:16)
[2019-07-12] MEDS: DULoxetine 30 MG CAPDR PO SCH (08:24)
[2019-07-12] MEDS: SENNA 8.6 MG TAB PO SCH ×3 (08:24→17:34)
--- NOTE | 2019-07-12 08:24 | NUR ---
RECEIVED CALL BACK FROM DR. MCKEON TO REPORT CREATININE VALUE OF 5.5. PER PHYSICIAN, "NO NEW ORDERS AT THIS TIME".
[2019-07-12] MEDS: HYDROXYUREA 500 MG CAP PO SCH (08:25)
[2019-07-12] MEDS: CARVEDILOL 6.25 MG TAB PO SCH ×2 (08:26→20:17)
[2019-07-12] MEDS: LEVOFLOXACIN 250 MG/D5 PREMIX 50 ML IV SCH (08:26)
--- NOTE | 2019-07-12 08:26 | NUR ---
ADMINISTERED MEDICATIONS PER ORDER, EXPLAINED INDICATIONS AND POTENTIAL SIDE EFFECTS TO PT AND DAUGHTER/MARIVEL. WILL CONTINUE TO MONITOR.
[2019-07-12] MEDS ORDERED: POLYETHYLENE GLYCOL 17 GM/PKT PO SCH (09:00)
--- NOTE | 2019-07-12 10:30 | NUR ---
PT'S LINENS AND GOWN CHANGED BY REAL ESTATE ANALYST. NOTED THAT PT HAD 1 LOOSE STOOL.
[2019-07-12 12:00] VITALS: BP 137/50
--- NOTE | 2019-07-12 12:56 | NUR ---
ADMINISTERED MEDICATIONS PER ORDER, REVIEWED INDICATIONS AND POTENTIAL SIDE EFFECTS TO PT AND FAMILY MEMBERS.
[2019-07-12] MEDS ORDERED: BOWEL EVACUANT DRINK 4,000 ML PDS PO SCH (14:00)
[2019-07-12] MEDS ORDERED: MAGNESIUM CITRATE 300 ML BTL PO SCH (14:00)
--- NOTE | 2019-07-12 14:15 | NUR ---
PT AND FAMILY GIVEN INSTRUCTIONS FOR BOWEL PREP, VERBALIZED UNDERSTANDING. DAUGHTER/MARIVEL SIGNED CONSENT FROM COLONOSCOPY.
[2019-07-12 16:00] VITALS: BP 154/60
--- NOTE | 2019-07-12 17:34 | NUR ---
ADMINISTERED MEDICATIONS PER ORDER, PT AND FAMILY AWARE OF INDICATIONS AND POTENTIAL SIDE EFFECTS. PER DAUGHTER/MARIVEL, NOTIFY PHYSICIAN THAT JENN/DAUGHTER WOULD LIKE TO SPEAK WITH MD REGARDING COLONOSCOPY PROCEDURE AND INVERTEBRATE PALEONTOLOGIST REGARDING CHOICES OF SNF FACILITIES AND THERAPIES TOMORROW AM.
[2019-07-12] MEDS: POLYETHYLENE GLYCOL 17 GM/PKT PO SCH ×2 (17:35→20:17)
--- NOTE | 2019-07-12 19:30 | NUR ---
RECEIVED FROM AM RN IN BED AWAKE AND ALERT. PT. WITH VISITORS. FAMILY MEMBERS IN HERE VISITING. REMINDED NPO MIDNIGHT RT WITH COLONOSCOPY TOMORROW. "OK" PT. ABLE TO DRINK LAXATIVE ORDERED. PT. UPPER SORBIAN SPEAKING AND ABLE TO EXPRESS SIMPLE NEEDS. NO SOB. AFEBRILE.
--- NOTE | 2019-07-12 19:35 | NUR ---
ENDORSED PT TO CHEMICAL EQUIPMENT CONTROLLER NURSE. PT HAS NO SIGNS OF DISTRESS AT THIS TIME.
[2019-07-12 20:07] VITALS: BP 166/66
[2019-07-12] MEDS: SIMVASTATIN 20 MG TAB PO SCH (20:16)
--- NOTE | 2019-07-12 21:15 | NUR ---
RECEIVED PATIENT ON 3L NASAL CANNULA, PULSE OX SAT 94%. NO SOB NOTED. PRN HHN NOT INDICATED AT THIS TIME. WILL CONTINUE TO MONITOR.
--- NOTE | 2019-07-12 21:23 | NUR ---
FAMILY MEMBERS LEFT. NO COMPLAINTS DONE. CALL LIGHT WITH IN REACH. REMINDED BY DAUGHTER JENN THAT SHE NEED TO USE IT IF SHE HAS BM OR NEED HELP IN [place]. WILL CHECK ON HER FREQUENTLY.
--- NOTE | 2019-07-12 22:09 | NUR ---
BLOOD PRESSURE OF 175/69 REPORTED TO RESIDENT MD OBRIEN. "IT IS OK BECAUSE SHE IS HIGHER THAN THAT AND SHE HAS BOWEL PREP ON GOING AT THIS TIME. " NO FURTHER ORDERS.
[2019-07-13] VITALS (8 sets, daily range): BP systolic 111–175; BP diastolic 50–72
[2019-07-13] MEDS: ACETAMINOPHEN 325 MG TAB PO SCH ×5 (00:04→23:48)
--- NOTE | 2019-07-13 00:22 | NUR ---
PT. AT THIS TIME BEEN AWAKE RT ON BOWEL PREP FOR COLONOSCOPY PROCEDURE TOMORROW. ON BED TURNER. ABLE TO VERBALIZE SIMPLE NEEDS IN YEMENI WITH FRAME STRIPPER WHOS SPEAKS YEMENI TOO./TONI/ . ABLE TO USE CALL LIGHT FOR HELP.
--- NOTE | 2019-07-13 01:46 | NUR ---
SLEEPING AT THIS TIME. NO RESTLESSNESS. TELEMETRY MONITORING. CALL LIGHT WITH IN REACH BESIDE HER.
--- NOTE | 2019-07-13 04:16 | NUR ---
HAD BM WATERY IN CONSISTENT RT HAD BOWEL PREP FOR COLONOSCOPY TODAY. AM PERSONAL HYGIENE RENDERED. ABLE TO VERBALIZE SIMPLE NEEDS WELL IN [place] AND ABLE TO USE CALL LIGHT FOR H ELP.
[2019-07-13] MEDS: metroNIDAZOLE 500 MG/NS PREMIX 100 ML IV SCH ×2 (04:45→12:19)
--- NOTE | 2019-07-13 05:58 | NUR ---
PT. AWAKE AND ALERT. ABLE TO VERBALIZE NEEDS WELL. NO SOB. NO COMPLAINTS OF PAIN DONE THIS SHIFT. CALL LIGHT WITH IN REACH AND NPO SINCE MIDNIGHT ORDERED. WILL ENDORSE TO AM RN FOR CONTINUITY OF CARE. TELEMETRY MONITORING.
[2019-07-13] MEDS: LEVOTHYROXINE 0.088 MG TAB PO SCH (06:00)
[2019-07-13] MEDS: METOCLOPRAMIDE 10 MG TAB PO SCH ×3 (06:00→16:29)
--- NOTE | 2019-07-13 07:01 | NUR ---
RECEIVED REPORT FROM CITY ATTORNEY NURSE. PT AROUSABLE TO NAME, ORIENTED X4, NO C/O PAIN AT THIS TIME. PT ON SAP SPECIALIST. IV ON RT HAND 24 GA RUNNING IVF PER ORDER. RESPIRATIONS EVEN AND UNLABORED ON O2 3L VIA N/C. ABD SOFT, ACTIVE BS, LBM 07/13/19. F/C IN PLACE, DRAINING CLEAR AND YELLOW URINE. SKIN IS INTACT, WARM TO TOUCH. PT ON FALL RISK PRECAUTIONS, SAFETY MEASURES IN PLACE, CALL LIGHT WITHIN REACH. REVIEWED POC WITH PT, PT VERBALIZED UNDERSTANDING.
[2019-07-13 07:47] LABS: BASOPHILS % (AUTO) 0.2 % (0.0-2.0); EOSINOPHILS # (AUTO) 0.1 K/uL (0-0.4); EOSINOPHILS % (AUTO) 1.3 % (0.0-4.0); HEMATOCRIT 26.9 % (36-48); HEMOGLOBIN 9.1 g/dL (12.0-16.0); LYMPHOCYTES # (AUTO) 1.4 K/uL (2.5-16.5); LYMPHOCYTES % (AUTO) 20.3 % (20.5-51.1); MEAN CORPUSCULAR HEMOGLOBIN 41 pg (27-31); MEAN CORPUSCULAR HGB CONC 34 g/dL (33-37); MEAN CORPUSCULAR VOLUME 120.9 fL (80-94); MONOCYTES # (AUTO) 0.4 K/uL (0.8-1.0); MONOCYTES % (AUTO) 5.9 % (1.7-9.3); NEUTROPHILS % (AUTO) 72.3 % (42.2-75.2); PLATELET COUNT (AUTO) 299 K/uL (140-450); RED BLOOD CELL COUNT(AUTO) 2.23 MIL/uL (4.20-5.40); RED CELL DISTRIBUTION WIDTH 14.8 % (11.6-13.7)
[2019-07-13 07:52] LABS: CHLORIDE 105 mmol/L (98-107); CREATININE 0.8 mg/dL (0.6-1.3); GLUCOSE 195 mg/dL (74-106); SODIUM SERUM 138 mmol/L (136-145); UREA NITROGEN, BLOOD 12 mg/dL (7-18)
[2019-07-13] MEDS: metFORMIN 500 MG TAB PO SCH ×2 (07:59→17:43)
[2019-07-13] MEDS: ISOSORBIDE DINITRATE 10 MG TAB PO SCH ×2 (08:00→20:30)
[2019-07-13] MEDS: ASPIRIN 81 MG TAB.CHEW PO SCH (08:01)
[2019-07-13] MEDS: cloNIDine 0.1 MG TAB PO SCH (08:01)
[2019-07-13] MEDS: DULoxetine 30 MG CAPDR PO SCH (08:01)
[2019-07-13] MEDS: amLODIPine 5 MG TAB PO SCH (08:01)
[2019-07-13] MEDS: LACTOBACILLUS RHAMNOSUS GG 1 EACH CAP PO SCH (08:01)
[2019-07-13] MEDS: LISINOPRIL 20 MG TAB PO SCH (08:02)
[2019-07-13] MEDS: HYDROCHLOROTHIAZIDE 25 MG TAB PO SCH (08:02)
[2019-07-13] MEDS: CARVEDILOL 6.25 MG TAB PO SCH ×2 (08:02→20:29)
[2019-07-13] MEDS: SENNA 8.6 MG TAB PO SCH ×2 (08:02→12:23)
[2019-07-13] MEDS: HYDROXYUREA 500 MG CAP PO SCH (08:03)
[2019-07-13] MEDS: LEVOFLOXACIN 250 MG/D5 PREMIX 50 ML IV SCH (08:03)
[2019-07-13] MEDS: POLYETHYLENE GLYCOL 17 GM/PKT PO SCH ×2 (08:03→12:23)
--- NOTE | 2019-07-13 08:03 | NUR ---
ADMINISTERED MEDICATIONS PER ORDER, PT VERBALIZES UNDERSTANDING REGARDING INDICATIONS AND POTENTIAL SIDE EFFECTS OF EACH.
[2019-07-13 08:05] LABS: MAGNESIUM 1.9 mg/dL (1.8-2.4); PHOSPHORUS 2.7 mg/dL (2.5-4.9)
--- NOTE | 2019-07-13 08:45 | NUR ---
PT HAD BOWEL MOVEMENT, CLEAR LIQUID, NO STOOL CONTENT. PT FINISHED BOWEL PREP FOR COLONOSCOPY PROCEDURE.
[2019-07-13 09:07] LABS: FOLIC ACID 3.3 ng/mL (>3.0)
--- NOTE | 2019-07-13 09:15 | NUR ---
DR. RYAN AT BEDSIDE SPEAKING WITH DAUGHTER/JENN.
--- NOTE | 2019-07-13 11:00 | NUR ---
CALLED THE INSURANCE [employer] SPOKE WITH POLA HARDWICK [phone] REQUESTING ALL THE PT NOTE AND ORDER FAXED TO [phone] RONEN TO FOLLOW
--- NOTE | 2019-07-13 12:23 | NUR ---
ADMINISTERED MEDICATIONS PER ORDER. HELD MIRALAX AND SENNA AT THIS TIME. PT NO LONGER HAS CONSTIPATION. WILL NOTIFY PHYSICIAN.
--- NOTE | 2019-07-13 12:30 | NUR ---
PER FAMILY, PCP IS ABLE TO CONTINUE CARE AT [facility] OR [facility]. NOTIFIED ONELIA REGARDING UPDATE.
[2019-07-13] MEDS ORDERED: METR500S15 IV (12:58)
[2019-07-13] MEDS ORDERED: DEXT50SO52 IV (12:58)
[2019-07-13] MEDS ORDERED: ISOS10TA9 PO (12:58)
[2019-07-13] MEDS ORDERED: AMLO5TAB PO (12:58)
--- NOTE | 2019-07-13 13:30 | NUR ---
RECEIVED CALL FROM DR. HAWKINS. PER PHYSICIAN, PROCEDURE WILL BE DONE LATER THIS AFTERNOON. NOTIFIED PT AND FAMILY.
--- NOTE | 2019-07-13 14:00 | NUR ---
CALLED POLA HARDWICK AT [facility] [phone] PROVIDE THE CONTRACTED FACILITY WHICH ARE [facility] , PER POLA TO WAIT FOR THE AUTHORIZATION # , FAXED ALL THE INFORMATION AND WILL F/U . NOTIFIED POLA THAT PT NEEDS A RIB BELT AND FAXED THE ORDER
[2019-07-13] MEDS ORDERED: MIDAZOLAM 2 MG/2 ML VIAL ONE (14:18)
[2019-07-13] MEDS ORDERED: diphenhydrAMINE 50 MG/ML VIAL ONE (14:18)
[2019-07-13] MEDS ORDERED: fentaNYL 0.05 MG/ML VIAL ONE (14:18)
--- NOTE | 2019-07-13 14:25 | NUR ---
PT HAD BOWEL MOVEMENT, NOTED BROWN LIQUID WITH CHUNKS. DR. HAWKINS IS AWARE.
--- NOTE | 2019-07-13 14:36 | NUR ---
PT TAKEN FOR PROCEDURE. PT HAS NO SIGNS OF DISTRESS AT THIS TIME.
[2019-07-13] MEDS ORDERED: MIDAZOLAM 2 MG/2 ML VIAL IVP ONE (14:46)
[2019-07-13] MEDS ORDERED: fentaNYL 0.05 MG/ML VIAL IVP ONE (14:48)
[2019-07-13] MEDS ORDERED: LACTULOSE 20 GM/30 ML UDC PO SCH (15:30)
--- NOTE | 2019-07-13 15:30 | NUR ---
PT RESTING IN LEFT LATERAL POSITION AT THIS TIME. VSS, NO C/O PAIN. WILL CONTINUE TO MONITOR.
[2019-07-13] MEDS ORDERED: MINERAL OIL 30 ML UDC PO SCH (16:00)
--- NOTE | 2019-07-13 16:00 | NUR ---
RECEIVED A CALL FROM DOOLE THOMAS SPOKE WITH ALEXIA ESCALONA'S NUMBER AND WILL CALL BACK , [facility] WOULD LIKE TO ACCEPT THE PATIENT IF THERE IS AUTHORIZATION.
--- NOTE | 2019-07-13 16:15 | NUR ---
DR. HAWKINS AND DR. RYAN AT BEDSIDE EXPLAINING FINDINGS DURING COLONOSCOPY PROCEDURE. PT AND FAMILY AGREES AND VERBALIZED UNDERSTANDING REGARDING PT'S PLAN OF CARE.
[2019-07-13] MEDS ORDERED: METPCK PO (16:29)
[2019-07-13] MEDS ORDERED: [UNRECOGNIZED DRUG - CODE] PO (16:29)
[2019-07-13] MEDS ORDERED: LACT10SO11 PO (16:29)
--- NOTE | 2019-07-13 16:46 | NUR ---
ALEXIA FROM [facility] ACCEPTED PATIENT PHONE #[phone] [facility] HOWEVER UNABLE TO REACH ALEXIA HARDWICK FROM [facility] WILL FOLLOW UP WITH TRANSFER. SPOKE WITH PT'S SON ,[facility]
--- NOTE | 2019-07-13 17:00 | NUR ---
DISCONTINUE F/C AT THIS TIME. PT GIVEN BSC D/T GENERALIZED WEAKNESS.
--- NOTE | 2019-07-13 17:45 | NUR ---
PT VOIDED AND HAD 1 BM IN BED TURNER, AND GIVEN GIL CARE.
--- NOTE | 2019-07-13 19:15 | NUR ---
ENDORSED PT TO PARKER NURSE. PT HAS NO SIGNS OF DISTRESS AT THIS TIME.
--- NOTE | 2019-07-13 19:17 | NUR ---
Received bedside report from nurse Gonzales. Family members at bedside. Pt is laying in bed supine. Awake and alert. AOx4. No signs of respiratory distress or SOB noted. IV access on Right hand 24 gauge, patent, intact and asymptomatic. Pt skin is intact. Board updated. Bed is lowered. Pt is fall risk. Will continue to monitor pt. Addendum: 07/13/19 at 2233 by Kay Kamara RN Pt on o2 3L via nasal cannula.
[2019-07-13] MEDS: SIMVASTATIN 20 MG TAB PO SCH (20:29)
[2019-07-13] MEDS: metroNIDAZOLE 250 MG TAB PO SCH (20:29)
[2019-07-13] MEDS ORDERED: cloNIDine 0.1 MG TAB PO SCH (21:00)
[2019-07-13] MEDS: ALBUTEROL SULFATE/IPRATROPIU 3 ML SOL IH PRN (21:01)
--- NOTE | 2019-07-13 21:09 | NUR ---
RECEIVED PATIENT ON 3L NASAL CANNULA, PULSE OX SAT 96%. PATIENT C/O FEELING SHORT OF BREATH. PRN HHN ADMINISTERED. TOLERATED WELL WITHOUT ADVERSE SIDE EFFECTS. FAMILY AT BEDSIDE. NO ACUTE RESPIRATORY DISTRESS NOTED. WILL CONTINUE TO MONITOR.
--- NOTE | 2019-07-13 21:30 | NUR ---
Rounds done. Pt awake and comfortable in bed, watching tv. No SOB or distress noted at this time. Will continue to monitor.
--- NOTE | 2019-07-13 23:20 | NUR ---
Rounds done at this time. Pt sleeping comfortably in bed. Visible chest rise and fall noted. No signs of distress. Will continue to monitor.
--- NOTE | 2019-07-14 00:05 | NUR ---
Vital signs taken at this time. Daughter still at bedside. No distress noted. Will continue to monitor pt.
[2019-07-14 00:06] VITALS: BP 145/59
--- NOTE | 2019-07-14 00:10 | NUR ---
Daughter went home at this time. No complaints. Reminded patient if she needs help or complaints of pain to use call light. Call light within patient reach. No distress noted.
--- NOTE | 2019-07-14 02:10 | NUR ---
Rounds done. No distress noted. Visible chest rise and fall noted. Will continue to monitor pt.
--- NOTE | 2019-07-14 03:15 | NUR ---
Pt called to be assisted onto bedpan. Noted with small amount of diarrhea mixed with urine. Addendum: 07/14/19 at 0445 by Kay Kamara RN Pt cleaned. No SOB or distress noted.
--- NOTE | 2019-07-14 03:58 | NUR ---
Vital signs taken. Pt sleeping comfortably. No distress noted. Will continue to monitor pt.
[2019-07-14 03:59] VITALS: BP 154/69
[2019-07-14] MEDS: metroNIDAZOLE 250 MG TAB PO SCH ×2 (04:23→13:14)
--- NOTE | 2019-07-14 06:21 | NUR ---
Vitals stable, Due meds given. Will endorse to AM shift nurse for continuity of care.
[2019-07-14] MEDS: LEVOTHYROXINE 0.088 MG TAB PO SCH (06:39)
[2019-07-14] MEDS: ACETAMINOPHEN 325 MG TAB PO SCH ×2 (06:39→11:56)
[2019-07-14] MEDS: METOCLOPRAMIDE 10 MG TAB PO SCH ×2 (06:40→11:57)
--- NOTE | 2019-07-14 07:30 | NUR ---
REPORT RECEIVED FROM NURSE AUGUSTE, PT SLEEPING, APPEARS COMFORTABLE, NO S/S OF ACUTE DISTRESS NOTED AT THIS TIME, SAFETY AND FALL PRECAUTIONS IN PLACE, CALL LIGHT AND PERSONAL ITEMS WITHIN EASY REACH, WILL CONTINUE TO MONITOR.
[2019-07-14 07:44] LABS: BASOPHILS % (AUTO) 0.4 % (0.0-2.0); EOSINOPHILS # (AUTO) 0.2 K/uL (0-0.4); EOSINOPHILS % (AUTO) 2.4 % (0.0-4.0); HEMATOCRIT 29.2 % (36-48); HEMOGLOBIN 9.8 g/dL (12.0-16.0); LYMPHOCYTES # (AUTO) 1.7 K/uL (2.5-16.5); LYMPHOCYTES % (AUTO) 25.4 % (20.5-51.1); MEAN CORPUSCULAR HEMOGLOBIN 40 pg (27-31); MEAN CORPUSCULAR HGB CONC 34 g/dL (33-37); MEAN CORPUSCULAR VOLUME 120.3 fL (80-94); MONOCYTES # (AUTO) 0.6 K/uL (0.8-1.0); NEUTROPHILS # (AUTO) 4.3 K/uL (1.8-7.7); NEUTROPHILS % (AUTO) 62.8 % (42.2-75.2); PLATELET COUNT (AUTO) 364 K/uL (140-450); RED BLOOD CELL COUNT(AUTO) 2.43 MIL/uL (4.20-5.40); RED CELL DISTRIBUTION WIDTH 14.9 % (11.6-13.7); WHITE BLOOD COUNT (AUTO) 6.9 K/uL (4.8-10.8)
[2019-07-14 07:58] LABS: ANION GAP 13.3 (8-16); CARBON DIOXIDE 23.8 mmol/L (21-32); CHLORIDE 103 mmol/L (98-107); CREATININE 0.7 mg/dL (0.6-1.3); GLUCOSE 169 mg/dL (74-106); POTASSIUM 4.1 mmol/L (3.5-5.1); SODIUM SERUM 136 mmol/L (136-145); UREA NITROGEN, BLOOD 10 mg/dL (7-18)
[2019-07-14 08:00] VITALS: BP 175/71
[2019-07-14 08:15] LABS: MAGNESIUM 1.7 mg/dL (1.8-2.4); PHOSPHORUS 3.2 mg/dL (2.5-4.9)
--- NOTE | 2019-07-14 08:30 | NUR ---
PT A/O ABLE TO COMMUNICATE NEEDS, RESTING IN BED AT THIS TIME, DAUGHTER AT BEDSIDE. SAFETY AND FALL PRECAUTIONS IN PLACE, NO S/S OF ACUTE DISTRESS NOTED AT THIS TIME, CALL LIGHT AND PERSONAL ITEMS WITHIN EASY REACH, WILL CONTINUE TO MONITOR.
[2019-07-14] MEDS ORDERED: SENNA 8.6 MG TAB PO SCH (09:00)
[2019-07-14] MEDS ORDERED: PSYLLIUM 12.2 GM/PKT PO SCH (09:00)
[2019-07-14] MEDS ORDERED: LEVOFLOXACIN 250 MG TAB PO SCH (09:00)
[2019-07-14] MEDS ORDERED: LACTULOSE 20 GM/30 ML UDC PO SCH (09:00)
--- NOTE | 2019-07-14 09:11 | NUR ---
RECEIVED A CALL FROM POLA HARDWICK AT [facility] STATED SHE JUST GAVE AUTHORIZATION NUMBER TO [facility] AND PROVIDE AUTH # FOR TRANSPORT [id number] . CALLED [facility] SPOKE WITH ALEXIA ,PT CAN GO TO ROOM 20A # TO GIVE REPORT [phone] AND ARRANGED TRANSPORT WITH DEON [phone] MATERIAL EXPEDITER TIME 1200 PM NOTIFIED [facility]STIDES LAWRENCE
--- NOTE | 2019-07-14 10:30 | NUR ---
PT OOB TO CHAIR FAMILY AT BEDSIDE, DISTRESS NOTED AT THIS TIME, CALL LIGHT AND PERSONAL ITEMS WITHIN EASY REACH, FALL PRECAUTIONS IN PLACE, WILL CONTINUE TO MONITOR.
[2019-07-14] MEDS: CARVEDILOL 6.25 MG TAB PO SCH (10:43)
[2019-07-14] MEDS: LACTOBACILLUS RHAMNOSUS GG 1 EACH CAP PO SCH (10:45)
[2019-07-14] MEDS: metFORMIN 500 MG TAB PO SCH (10:45)
[2019-07-14] MEDS: DULoxetine 30 MG CAPDR PO SCH (10:45)
[2019-07-14] MEDS: ASPIRIN 81 MG TAB.CHEW PO SCH (10:46)
[2019-07-14] MEDS: LISINOPRIL 20 MG TAB PO SCH (10:47)
[2019-07-14] MEDS: ISOSORBIDE DINITRATE 10 MG TAB PO SCH (10:48)
[2019-07-14] MEDS: amLODIPine 5 MG TAB PO SCH (10:48)
[2019-07-14] MEDS: HYDROXYUREA 500 MG CAP PO SCH (10:49)
[2019-07-14] MEDS: HYDROCHLOROTHIAZIDE 25 MG TAB PO SCH (10:50)
[2019-07-14] MEDS ORDERED: MAG SULF 2000 MG/WATER PREMIX 50 ML IV SCH (11:00)
[2019-07-14] MEDS ORDERED: METR-435 PO (11:04)
--- NOTE | 2019-07-14 11:54 | NUR ---
[facility] AND THY PREFERRED TO GO TO [facility] . CALLED [facility] SPOKE WITH NUVIA ,ACCEPT PT AND CAN GO TO ROOM 214A # TO GIVE REPORT [phone] THE TRANSPORT WILL CALL
[2019-07-14 12:00] VITALS: BP 141/59
--- NOTE | 2019-07-14 12:30 | NUR ---
PT OOB TO CHAIR DAUGHTER REMAINS AT BEDSIDE, PT REMAINS A/O ABLE TO COMMUNICATE NEEDS, STATES PAIN TO L FLANK TOLERABLE AT THIS TIME. NO S/S OF ACUTE DISTRESS NOTED AT THIS TIME, CALL LIGHT AND PERSONAL ITEMS WITHIN EASY REACH, WILL CONTINUE TO MONITOR.
[2019-07-14 14:29] VITALS: BP 147/59
--- NOTE | 2019-07-14 14:30 | NUR ---
PT OOB TO CHAIR FAMILY AT BEDSIDE, PT REMAINS A/O ABLE TO COMMUNICATE NEEDS, NO S/S OF ACUTE DISTRESS NOTED AT THIS TIME, CALL LIGHT AND PERSONAL ITEMS WITHIN EASY REACH, WILL CONTINUE TO MONITOR.
--- NOTE | 2019-07-14 16:16 | NUR ---
07/14/19 RD FOLLOW UP COMPLETED PLEASE REFER TO NUTRITION ASSESSMENT UNDER CARE ACTIVITY FOR ESTIMATED NUTRITIONAL NEEDS. 1. RECOMMEND A CCHO, CARDIAC DIET 2. RECOMMEND GLUCERNA BID 3. NUTRITION EDUCATION DM-II WAS GIVEN TO PT 4. RD TO FOLLOW-UP HIGH DAYS, 3-[address]
--- NOTE | 2019-07-14 16:35 | NUR ---
PT REMAINS A/O ABLE TO COMMUNICATE NEEDS, FAMILY AT BEDSIDE, PT AND FAMILY PROVIDED DC INSTRUCTIONS, PT REFUSED TO PARTICIPATE W TRANSLATION SERVICES AND DESIGNATED HER SON TO SIGN DC PAPERWORK. PT DCD'D W ALL BELONGINGS TO [facility]IA MEDICAL TRANSPORT, SKIN REMAINS INTACT, PER PT UP TO DATE IN VACCINES. NO S/S OF ACUTE DISTRESS NOTED AT THIS TIME. REPORT GIVE N TO RONALDO AT [facility] [phone]
== END 2019-07-14 16:35 | DRG 871 ==
LOC: MED 15:54 → MIC 22:39 → MTU 07-11 18:45
PROVIDERS: ADMIT General Practice; ATTEND General Practice
PROC: 0DBL8ZX Excision of Transverse Colon, Via Natural or Artificial Opening Endoscopic, Diagnostic (ICD-10-PCS; principal; 2019-07-13 14:00)
DX: A41.9 Sepsis, unspecified organism (principal); J69.0 Pneumonitis due to inhalation of food and vomit; J96.00 Acute respiratory failure, unspecified whether with hypoxia or hypercapnia; G93.41 Metabolic encephalopathy; S22.41XA Multiple fractures of ribs, right side, initial encounter for closed fracture; N39.0 Urinary tract infection, site not specified; K55.9 Vascular disorder of intestine, unspecified; K63.3 Ulcer of intestine; S27.329A Contusion of lung, unspecified, initial encounter; D62 Acute posthemorrhagic anemia; B96.20 Unspecified Escherichia coli [E. coli] as the cause of diseases classified elsewhere; E78.5 Hyperlipidemia, unspecified; I10 Essential (primary) hypertension; I25.10 Atherosclerotic heart disease of native coronary artery without angina pectoris; K57.30 Diverticulosis of large intestine without perforation or abscess without bleeding; F32.9 Major depressive disorder, single episode, unspecified; M19.90 Unspecified osteoarthritis, unspecified site; R65.20 Severe sepsis without septic shock; E11.65 Type 2 diabetes mellitus with hyperglycemia; E03.9 Hypothyroidism, unspecified; N26.1 Atrophy of kidney (terminal); W18.30XA Fall on same level, unspecified, initial encounter; Y93.01 Activity, walking, marching and hiking; Z87.19 Personal history of other diseases of the digestive system; Z95.5 Presence of coronary angioplasty implant and graft; Z79.84 Long term (current) use of oral hypoglycemic drugs; Z79.82 Long term (current) use of aspirin; Z79.899 Other long term (current) drug therapy; Z90.710 Acquired absence of both cervix and uterus; Z90.49 Acquired absence of other specified parts of digestive tract; Z88.5 Allergy status to narcotic agent; Y92.090 Kitchen in other non-institutional residence as the place of occurrence of the external cause; Y99.8 Other external cause status
CPT/HCPCS: 36415; 51702; 70450; 71045; 71260; 80048; 80053; 81001; 82272; 82306; 82550; 82607; 82746; 82948; 83036; 83605; 83690; 83735; 83880; 84100; 84439; 84443; 84484; 85025; 85610; 85730; 87015; 87040; 87045; 87070; 87081; 87086; 87186; 87804; 93005; 93880; 94640; 96361; 96365; 96375; 97110; 97116; 97161-GP; 97530; 99291; C1758; J1200; J1644; J1885; J1956; J2250; J2405; J3010; J3475; J3490; J7030; J7620; J8597; Q0092